=== PATIENT | male | born 1975 | race Two or more races ===

== ENCOUNTER 2021-03-12 11:37 | Emergency (ER) | payer OTHER ==
[~2021-03-12] VITALS: Ht 175.3 cm; Wt 104.3 kg
[2021-03-12 11:45] VITALS: BP 144/77
--- NOTE | 2021-03-12 11:50 | NUR ---
BIBS FOR WANTING PIERCING IN LOWER LIP REMOVED. DENIES PAIN. WILL CONTINUE TO MONITOR THE PATIENT.
[2021-03-12] MEDS ORDERED: LIDOCAINE 1%-EPI 1:100,000 20 ML VIAL ONE (11:51)
[2021-03-12] MEDS ORDERED: LIDOCAINE HCL/PF 1% 30 ML SDV ONE (11:58)
== END 2021-03-12 12:25 | disposition home or self-care (01) ==
LOC: ER 11:41
DX: S00.551A Superficial foreign body of lip, initial encounter (principal); Z60.2 Problems related to living alone; W45.8XXA Other foreign body or object entering through skin, initial encounter; Y93.89 Activity, other specified; Y92.89 Other specified places as the place of occurrence of the external cause; Y99.8 Other external cause status
CPT/HCPCS: 10120; 99285; J3490